=== PATIENT | female | born 1990 | race Two or more races ===

== ENCOUNTER 2021-10-25 04:47 | Observation (INO) | payer SELFPAY ==
[~2021-10-25] VITALS: Ht 162.6 cm; Wt 99.3 kg
[2021-10-25] MEDS ORDERED: PANTOPRAZOLE 40 MG/10 ML VIAL INJ IV ONE (05:15)
[2021-10-25] MEDS ORDERED: LACTATED RINGER'S 1,000 ML IV ONE (05:15)
[2021-10-25] MEDS ORDERED: PREN-96 PO (06:34)
[2021-10-25 06:53] LABS: Basophils # (auto) 0 10 ^3/uL (0-0.2); Hematocrit 34.8 % (36.0-46.0); Mean Corpuscular Volume 80.6 fL (80.0-100.0); Monocytes # (auto) 0.4 10 ^3/uL (0-1.3); Red Blood Cells 4.32 10^6/uL (4.0-5.20)
[2021-10-25 06:54] LABS: Albumin 2.3 g/dL (3.4-5.0); Calcium 8.6 mg/dL (8.5-10.1); Potassium 3.8 mmol/L (3.5-5.1)
[2021-10-25 06:57] LABS: BUN/Creatinine Ratio 21.2; Bilirubin, Total 0.4 mg/dL (0.2-1.0); Total Protein 6.5 g/dL (6.4-8.2)
[2021-10-25 06:58] LABS: Basophils % (auto) 0.2 % (0.0-2.0); Eosinophils # (auto) 0 10 ^3/uL (0-0.8); Eosinophils % (auto) 0.5 % (0.0-7.0); Hemoglobin 11.5 g/dL (12.2-16.2); Lymphocytes # (auto) 1.6 10 ^3/uL (0.4-5.4); Lymphocytes % (auto) 17.4 % (10.0-50.0); Mean Corpuscular Hemoglobin 26.7 pg (28.0-32.0); Mean Corpuscular Hgb Conc. 33.1 g/dL (32.0-36.0); Monocytes % (auto) 4.2 % (0.0-12.0); Neutrophils # (auto) 7.2 10 ^3/uL (1.6-8.6); Neutrophils % (auto) 77.7 % (37.0-80.0); Nucleated Red Blood Cells % 0.1 %; Red Cell Distribution Width 14.7 % (11.8-14.3); White Blood Cell 9.3 10^3/uL (4.4-10.8)
== END 2021-10-25 07:47 | disposition home or self-care (01) ==
LOC: LDRP 04:47
PROVIDERS: ADMIT Obstetrics & Gynecology; ATTEND Obstetrics & Gynecology
DX: O21.2 Late vomiting of pregnancy (principal); Z20.822 Contact with and (suspected) exposure to COVID-19; O99.612 Diseases of the digestive system complicating pregnancy, second trimester; K21.9 Gastro-esophageal reflux disease without esophagitis; Z3A.21 21 weeks gestation of pregnancy
CPT/HCPCS: 36415; 59025; 76705; 76815; 80053; 81002; 85025; 87426; 94760; 96361; 96374; C9113; G0378; G0379; 96360

== ENCOUNTER 2021-10-28 03:08 | Observation (INO) | payer MEDICAID ==
[~2021-10-28] VITALS: Ht 162.6 cm; Wt 103.4 kg
[~2021-10-28 03:08] MED LIST: PREN-96 PO
== END 2021-10-28 04:22 | disposition home or self-care (01) ==
LOC: LDRP 03:08
PROVIDERS: ADMIT Obstetrics & Gynecology; ATTEND Obstetrics & Gynecology
DX: O21.2 Late vomiting of pregnancy (principal); O26.892 Other specified pregnancy related conditions, second trimester; R10.9 Unspecified abdominal pain; R10.11 Right upper quadrant pain; Z3A.21 21 weeks gestation of pregnancy
CPT/HCPCS: 59025; 81002; 94760; G0378; G0379

== ENCOUNTER 2022-02-28 01:25 | Observation (INO) | payer BC | END 2022-02-28 03:22 | disposition home or self-care (01) | LOC: LDRP 01:25 | PROVIDERS: ADMIT Obstetrics & Gynecology; ATTEND Obstetrics & Gynecology | DX: O62.9 Abnormality of forces of labor, unspecified (principal); Z3A.39 39 weeks gestation of pregnancy | CPT/HCPCS: 59025; 81002; 94760; G0378 ==

== ENCOUNTER 2022-03-01 12:40 | Inpatient (IN) | payer BC ==
[~2022-03-01] VITALS: Ht 162.6 cm; Wt 102.1 kg
[2022-03-01] MEDS ORDERED: DERMOPLAST 60ML BOTTLE TOP PRN (13:45)
[2022-03-01] MEDS ORDERED: BUTORPHANOL TARTRATE 2 MG/1 ML VIAL IV PRN ×2 (13:45)
[2022-03-01] MEDS ORDERED: LACT. RINGERS/OXYTOCIN 20UNITS 500 ML IV ONE ×2 (13:45→14:15)
[2022-03-01] MEDS ORDERED: PROMETHAZINE HCL 25 MG/ML 1ML IV PRN (13:45)
[2022-03-01] MEDS ORDERED: WITCH HAZEL-GLYCERIN PAD TOP PRN (13:45)
[2022-03-01] MEDS ORDERED: PHISODERM TOP SOLN 240ML BTL TOP PRN (13:45)
[2022-03-01] MEDS ORDERED: LIDOCAINE 2%HCL (LOCAL ANESTH.) INJ 10ml MDV IJ PRN (13:45)
[2022-03-01] MEDS: LACTATED RINGER'S 1,000 ML IV SCH ×3 (14:15→17:34)
[2022-03-01 14:48] LABS: Basophils # (auto) 0 10 ^3/uL (0-0.2); Eosinophils # (auto) 0 10 ^3/uL (0-0.8); Eosinophils % (auto) 0.3 % (0.0-7.0); Lymphocytes # (auto) 1.8 10 ^3/uL (0.4-5.4); Monocytes # (auto) 0.4 10 ^3/uL (0-1.3)
[2022-03-01 14:50] LABS: Basophils % (auto) 0.3 % (0.0-2.0); Hematocrit 33.5 % (36.0-46.0); Hemoglobin 11.3 g/dL (12.2-16.2); Lymphocytes % (auto) 20.6 % (10.0-50.0); Mean Corpuscular Hemoglobin 26.7 pg (28.0-32.0); Mean Corpuscular Hgb Conc. 33.7 g/dL (32.0-36.0); Mean Corpuscular Volume 79.4 fL (80.0-100.0); Monocytes % (auto) 4.7 % (0.0-12.0); Neutrophils # (auto) 6.6 10 ^3/uL (1.6-8.6); Neutrophils % (auto) 74.1 % (37.0-80.0); Red Blood Cells 4.22 10^6/uL (4.0-5.20); Red Cell Distribution Width 14.1 % (11.8-14.3); White Blood Cell 8.9 10^3/uL (4.4-10.8)
[2022-03-01 15:03] LABS: INR 0.95 (0.9-1.15); Partial Thromboplastin Time 26.7 sec (23.6-33.0)
[2022-03-01 15:06] LABS: Albumin 2.2 g/dL (3.4-5.0); Calcium 8.7 mg/dL (8.5-10.1); Uric Acid 5.8 mg/dL (2.6-6.0)
[2022-03-01 15:09] LABS: Amphetamine Screen, Urine NEGATIVE (NEGATIVE); Barbiturate Scree,Urine NEGATIVE (NEGATIVE); Benzodiazephine Screen, Urine NEGATIVE (NEGATIVE); Cannabinoid Screen, Urine NEGATIVE (NEGATIVE); Cocaine Screen, Urine NEGATIVE (NEGATIVE); Opiate Scree,Urine NEGATIVE (NEGATIVE); Phencyclidine Screen, Urine NEGATIVE (NEGATIVE)
[2022-03-01 15:09] LABS: BUN/Creatinine Ratio 17.6; Bilirubin, Total 0.5 mg/dL (0.2-1.0); Total Protein 6.8 g/dL (6.4-8.2)
[2022-03-01 15:18] LABS: Urine Bacteria FEW /hpf (None Seen); Urine Blood TRACE /uL (Negative); Urine Specific Gravity 1.008 (1.001-1.035); Urine WBC 70 /hpf (0 - 5)
[2022-03-01] MEDS ORDERED: fentaNYL CITRATE 100 MCG/2 ML VL IV ONE ×2 (15:30→15:45)
[2022-03-01] MEDS ORDERED: LIDOCAINE HCL 2 %PF INJ 10ML AMP IJ ONE ×3 (15:30→16:35)
[2022-03-01] MEDS ORDERED: ROPIVACAINE HCL 200 ML EPI SCH ×3 (15:30→17:15)
[2022-03-01] MEDS ORDERED: NALOXONE HCL 0.4 MG/ML VIAL IV ONE ×3 (15:30→17:15)
[2022-03-01] MEDS ORDERED: ePHEDrine SULFATE 50 MG/ML AMP IV ONE ×3 (15:30→17:15)
[2022-03-01] MEDS ORDERED: LIDOCAINE 1% (LOCAL ANESTH.) PF 5ml SDV ONE (16:38)
[2022-03-01] MEDS ORDERED: LIDOCAINE 2% (LOCAL ANESTH.) PF 5ml SDV ONE (16:42)
[2022-03-01] MEDS ORDERED: LIDOCAINE 2% (LOCAL ANESTH.) PF 5ml SDV XX ONE (16:57)
[2022-03-01] MEDS ORDERED: SODIUM CHLORIDE 0.9% 500 ML IV PRN (17:15)
[2022-03-01] MEDS ORDERED: fentaNYL 400mCg/200ml W ROPIVA 200 ML EPI SCH (17:15)
[2022-03-01] MEDS ORDERED: LACTATED RINGER'S 500 ML IV ONE (17:15)
[2022-03-01] MEDS ORDERED: METHYLERGONOVINE MALEATE 0.2 MG/ML AMP IM ONE ×2 (18:14→18:15)
[2022-03-01 23:00] VITALS: BP 121/71
[2022-03-01] MEDS ORDERED: IBUPROFEN 600 MG TAB PO PRN (23:15)
[2022-03-01] MEDS ORDERED: ACETAMINOPHEN 325 MG TAB PO PRN (23:15)
[2022-03-02 03:00] VITALS: BP 117/68
[2022-03-02 06:51] VITALS: BP 109/67
[2022-03-02 08:07] LABS: RPR Non Reactive (Non Reactive)
[2022-03-02 11:17] VITALS: BP 112/79
[2022-03-02 15:02] VITALS: BP 117/75
[2022-03-02 19:10] VITALS: BP 125/76
== END 2022-03-02 21:00 | disposition home or self-care (01) | DRG 807 ==
LOC: LDRP 12:40 → OBSVTOIN 13:29 → LDRP 13:34
PROVIDERS: ADMIT Obstetrics & Gynecology; ATTEND Obstetrics & Gynecology
PROC: 10E0XZZ Delivery of Products of Conception, External Approach (ICD-10-PCS; principal; 2022-03-01)
PROC: 3E0R3BZ Introduction of Anesthetic Agent into Spinal Canal, Percutaneous Approach (ICD-10-PCS; 2022-03-01)
PROC: 00HU33Z Insertion of Infusion Device into Spinal Canal, Percutaneous Approach (ICD-10-PCS; 2022-03-01)
DX: O69.81X0 Labor and delivery complicated by cord around neck, without compression, not applicable or unspecified (principal); Z37.0 Single live birth; Z20.822 Contact with and (suspected) exposure to COVID-19; Z3A.39 39 weeks gestation of pregnancy
CPT/HCPCS: 36415; 59025; 59409; 62282; 80053; 80307; 81001; 84550; 85025; 85610; 85730; 86592; 86850; 86900; 86901; 94760; 96360; 96361; 96365; 96366; G0378; J2001; J2590